=== PATIENT | female | born 1990 | race Caucasian/White ===

== ENCOUNTER 2018-02-23 17:05 | Inpatient (IN) | END 2018-02-26 17:10 | disposition home or self-care (01) | DRG 781 ==

== ENCOUNTER 2018-04-15 20:54 | Outpatient (CLI) | END 2018-04-15 23:15 | disposition home or self-care (01) ==

== ENCOUNTER 2018-04-16 16:19 | Inpatient (IN) | END 2018-04-19 17:45 | disposition home or self-care (01) | DRG 807 ==